=== PATIENT | male | born 1995 | race Caucasian/White ===

== ENCOUNTER 2017-06-10 13:07 | Emergency (ER) | payer BC ==
[~2017-06-10] VITALS: Ht 182.9 cm; Wt 108.9 kg
[2017-06-10 13:54] VITALS: BP 132/71
--- NOTE | 2017-06-10 14:03 | NUR ---
STREP AND INFLUENZA COLLECTED
[2017-06-10] MEDS ORDERED: IBUPROFEN 600 MG TAB ONE (14:07)
[2017-06-10] MEDS ORDERED: ACETAMINOPHEN EXTRA STRENGTH 500 MG TAB ONE (14:08)
[2017-06-10 16:30] VITALS: BP 135/72
--- NOTE | 2017-06-10 16:30 | NUR ---
Patient discharged with v/s stable. Written and verbal after care instructions given and explained. Patient alert, oriented and verbalized understanding of instructions. Ambulatory with steady gait. All questions addressed prior to discharge. ID band removed. Patient advised to follow up with PMD. Rx of tylenol,robitussin,tamiflu given. Patient educated on indication of medication including possible reaction and side effects. Opportunity to ask questions provided and answered.
== END 2017-06-10 16:30 | disposition home or self-care (01) ==
LOC: MED 13:07
DX: J11.1 Influenza due to unidentified influenza virus with other respiratory manifestations (principal); J02.9 Acute pharyngitis, unspecified; R05 Cough
CPT/HCPCS: 36415; 87081; 87804; 99284